=== PATIENT | male | born 1970 | race Caucasian/White ===

== ENCOUNTER 2019-02-06 11:13 | Outpatient (CLI) | payer OTHER, SELFPAY ==
--- NOTE | 2019-02-06 11:04 | DI.RAD_ITS ---
SYMPTOMS/DIAGNOSIS: LATERAL PAIN RIGHT ANKLE: Three views were obtained. The ankle mortise is fairly well maintained. There are prominent osseous bodies seen adjacent to medial and lateral malleoli which may represent accessory ossicles or old fractures. Anterior marginal osteophyte formation noted at the distal tibia, the possibility of tibiotalar impingement not excluded. Subtalar joints appear intact. No other significant abnormality seen.
== END 2019-02-06 11:33 ==
PROVIDERS: Visit Provider Physician Assistant Surgical
DX: M25.571 Pain in right ankle and joints of right foot (principal); M85.872 Other specified disorders of bone density and structure, left ankle and foot
CPT/HCPCS: 73610

== ENCOUNTER 2019-09-21 14:39 | Emergency (ER) | payer OTHER, SELFPAY ==
[2019-09-21 14:45] VITALS: BP 165/112; PULSE 85; RESP 16; TEMP 36.7; O2SAT 97
--- NOTE | 2019-09-21 15:15 | ED.GENADUL_ITS ---
Discharge Plan Disposition Patient Disposition: HOME Discharge Details Chief Complaint: Trauma Clinical Impression: Low back pain, Bilateral leg paresthesia, Contusion of back Primary Care Provider: Winnie Mckenzie ED Provider: Sukhdeep Magdaleno Home Meds and New Rx's Prescriptions: No Action ibuprofen 200 mg tablet 800 mg PO .Bedtime PRNRF: 0 epinephrine [EpiPen 2-Hiren] 0.3 mg/0.3 mL auto-injector 0.3 mg IM ONCE RF: 0 Discharge Instructions Instructions: Low Back Strain (ED) Additional Instructions: If numbness/tingling of your inner thighs returns, please schedule timely follow-up with orthopedics. Please take ibuprofen over the counter. Take 600mg by mouth every 6 hours as needed for pain. Please take acetaminophen (tylenol) - 650mg every 6 hours by mouth as needed for pain. Please contact your primary care physician to arrange follow-up. No heavy lifting, bending or twisting until symptoms completely resolved. Return to the ER for any worsening or new concerning symptoms. Stand Alone Forms: Work Release Referrals: Winnie Mckenzie NP [Primary Care Provider] - William Rollins MD [ [facility] STAFF PHYSICIAN] - Discharge Data Discharge Date/Time-TO BE ENTERED AT DEPARTURE: 09/21/19 16:35 Medical Decision Making 15:55 -- 57-year-old male presents 1 day after fall while on snow skate landing on his low back on ice, here with low back pain. Patient had intermittent tingling paresthesias to his inner thighs. He has had no bowel or bladder dysfunction. Rectal tone is normal. Patient is currently neurologically intact. Plan for CT of the lumbar spine to assess for fracture. --CT interpreted by radiology: No fracture. Degenerative spondylosis of the lumbar spine. Plan will be for outpatient follow-up. If paresthesias recur, patient will need timely follow-up with orthopedics. Usual customary discharge instructions were provided. HPI General Mode of arrival: ambulatory . Date/Time Provider Initiated Documentation: 09/21/19 14:56 . Limitations to Documentation: no limitations . Information obtained by: patient . HPI Narrative: 49-year-old male presents with chief complaint of low back pain. Patient notes he slipped on ice while on a snow skate and fell yesterday landing on his low back. He has had pain in his back since the fall. Pain is moderate to severe. Pain worse with certain positions including prolonged standing. Last night and early this morning he had intermittent tingling in his inner thighs bilaterally. No bowel or bladder dysfunction. No other injuries during the fall. Related Data Home Medications Medication Instructions Recorded Confirmed epinephrine 0.3 mg/0.3 mL 0.3 mg IM ONCE 07/03/19 09/21/19 injection, auto-injector ibuprofen 200 mg tablet 800 mg PO .Bedtime PRN tab 10/02/19 Allergies Allergy/AdvReac Type Severity Reaction Status Date / Time venom-honey bee Allergy Severe anaphlyaxix Verified 10/02/19 15:36 venom wasp Allergy Severe anaphylaxis Uncoded 10/02/19 15:36 General Stated Complaint: Trauma ADRIANA: 3 Review of Systems Gastrointestinal Gastrointestinal: Denies abdominal pain Musculoskeletal Musculoskeletal: Reports as per HPI Neurologic Neurologic: Reports as per HPI [facility] Medical History (Updated 10/02/19 @ 16:25 by Winnie Mckenzie NP) Elevated blood pressure reading without diagnosis of hypertension (Chronic) Gouty arthropathy (Inactive) Hypercholesterolemia (Acute) Low back pain (Acute) Neck pain (Acute) Thoracic back pain (Acute) Surgical History No significant past surgical history (Acute) Family History Mother , Age 54 Substance abuse Herioin Stroke Father , Suicide Age 56 Depression Social History Smoking/Tobacco Use Status: Never Second Hand Exposure: No Alcohol Intake: current Alcohol Intake frequency: 0-2 drinks per day Alcohol type: beer Drug use: Daily Substance use type: marijuana Household members: significant other Number of Children: 2 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 Pets and animals: Yes Pets and animals: dog(s) Current gender identity: male What is your relationship status?: living with partner Panel score (0-1 are the most socially isolated patients): 1 What type of physical activity do you participate in: bicycling Duration: 45-60 minutes/day Frequency: 3-4 times per week Seatbelt use: always Helmet use: Yes Helmet use: always Drive 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 or ride w/intox 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 Water heater temp set <120 deg: Yes Working smoke detector in home: Yes Fire extinguisher in home: Yes Carbon monox detector in home: Yes Firearms in home: Yes Firearms unloaded and locked: Yes Exam Const General: cooperative and no acute distress HENMT Head: normocephalic and atraumatic Mouth: moist mucous membranes Eyes Conjunctivae: normal conjunctivae Sclera: normal sclerae Neck Neck: full ROM, trachea midline and supple Resp Auscultation: clear to auscultation bilaterally, no rales, no rhonchi and no wheezes Cardio Jugular venous pressure: no JVD Rate: regular rate and not tachycardic Rhythm: regular rhythm GI Palpation: soft, not firm, no guarding, no masses, not rigid and nontender Rectal Exam: normal sphincter tone Back/Spine/Pelvis Cervical Spine: cervical ROM normal and No cervical spinal tenderness Thoracic/Lumbar Spine: paraspinal tenderness, No thoracic spinal tenderness and lumbar spinal tenderness (Lower lumbar and left paraspinal lumbar) Skin General skin exam: no rashes or lesions noted Neuro General: alert, awake, oriented x3 and tone normal Cognition: normal cognition Motor: muscle tone normal throughout and strength 5/5 throughout (Lower extremities) Sensory Exam: no sensory deficits noted (Lower extremities) DTR's: Rt Patellar: 2+ and Lt Patellar: 2+ Psych Appearance: grossly normal Mental Status: mental status grossly normal Course Vital Signs Vital signs: Vital Signs Temperature 36.7 C 09/21/19 14:45 Pulse 85 09/21/19 14:45 Respiratory Rate 16 09/21/19 14:45 Blood Pressure 165/112 H 09/21/19 14:45 Pulse Oximetry 97 09/21/19 14:45 Temperature 36.7 C 09/21/19 14:45 Temperature Source Skin 09/21/19 14:45 Pulse 85 09/21/19 14:45 Respiratory Rate 16 09/21/19 14:45 Respiratory Effort Non-Labored 09/21/19 14:45 Blood Pressure 165/112 H 09/21/19 14:45 Blood Pressure Position Sitting 09/21/19 14:45 Pulse Oximetry 97 09/21/19 14:45 Oxygen Delivery Method Room Air 09/21/19 14:45 Oxygen Flow Rate 0 09/21/19 14:45 Pain Level 9 09/21/19 14:45
--- NOTE | 2019-09-21 15:37 | DI.CT_ITS ---
EXAM: CT LUMBAR SPINE SI JOINTS WO CLINICAL HISTORY: fall, yesterday, intermittent inner thigh numbness TECHNIQUE: The exam was performed according to the usual protocol without contrast. COMPARISON: No exams were available for comparison FINDINGS: There are no acute fractures or subluxations seen in the lumbar spine. Multilevel degenerative minor es are present throughout the spine. Soft tissues are unremarkable. Sacroiliac joints are intact. Note is made of osteoarthritis of the hips bilaterally. IMPRESSION: No acute fracture or subluxation in the lumbar spine.
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
--- NOTE | 2019-09-25 07:12 | NUR.NOTE ---
Nursing Note: 09/24/2019 patient called stating he was still having pain and that he felt that he could not work until next week. Stated he would need a new work release note. The patient was told that he could try calling his PCP and getting an appt. or that he could come back to the ED for re-evaluation. Zuleika Rodriguez.
== END 2019-09-21 16:35 | disposition home or self-care (01) ==
PROVIDERS: Emergency Provider Student in an Organized Health Care Education/Training Program; PCP Nurse Practitioner Adult Health
DX: M54.5 Low back pain (principal); R20.2 Paresthesia of skin; S20.229A Contusion of unspecified back wall of thorax, initial encounter; W00.0XXA Fall on same level due to ice and snow, initial encounter
CPT/HCPCS: 99284; 72131

== ENCOUNTER 2019-12-03 09:59 | Outpatient (CLI) | payer OTHER, SELFPAY ==
[2019-12-03 11:39] LABS: ALT 30 U/L (16-63); AST 21 U/L (15-37); Albumin 4.2 g/dL (3.4-5.0); Alkaline Phosphatase 100 U/L (46-116); Anion Gap 3.6 mmol/L (3-11); BUN 23 mg/dL (7-18); Bilirubin, Total 0.7 mg/dL (0.2-1.0); CO2 34.4 mmol/L (21.0-32.0); CREATININE 0.93 mg/dL (0.70-1.30); Calcium 8.8 mg/dL (8.5-10.1); Calculated LDL 129 mg/dL (<100); Chloride 104 mmol/L (98-107); Cholesterol 225 mg/dL (<200); Glucose 97 mg/dL (74-106); HDL Cholesterol 41 mg/dL (40-60); Potassium 3.9 mmol/L (3.5-5.1); Sodium 142 mmol/L (136-145); Total Protein 7.5 g/dL (6.4-8.2); Triglyceride 276 mg/dL (<150)
== END 2019-12-03 10:19 ==
PROVIDERS: PCP Nurse Practitioner Adult Health; Visit Provider Nurse Practitioner Adult Health
DX: E78.00 Pure hypercholesterolemia, unspecified (principal); M10.9 Gout, unspecified; R03.0 Elevated blood-pressure reading, without diagnosis of hypertension
CPT/HCPCS: 36415; 80053; 80061

== ENCOUNTER 2020-04-09 15:54 | Outpatient (REF) | payer OTHER, SELFPAY ==
[2020-04-09 19:08] LABS: Anion Gap 9.9 mmol/L (3-11); BUN 23 mg/dL (7-18); CO2 27.1 mmol/L (21.0-32.0); CREATININE 1.07 mg/dL (0.70-1.30); Chloride 104 mmol/L (98-107); Glucose 106 mg/dL (74-106); Potassium 3.6 mmol/L (3.5-5.1); Sodium 141 mmol/L (136-145)
== END 2020-04-09 16:14 ==
LOC: LBN 15:54
PROVIDERS: PCP Nurse Practitioner Adult Health; Visit Provider Nurse Practitioner Adult Health
DX: I10 Essential (primary) hypertension (principal)
CPT/HCPCS: 80048

== ENCOUNTER 2020-05-23 16:52 | Emergency (ER) | payer OTHER, SELFPAY ==
[2020-05-23 16:57] VITALS: BP 181/115; PULSE 76; TEMP 37.3; O2SAT 99
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
== END 2020-05-23 18:34 | disposition home or self-care (01) ==
PROVIDERS: Emergency Provider Physician Assistant; PCP Nurse Practitioner Adult Health
DX: S42.022A Displaced fracture of shaft of left clavicle, initial encounter for closed fracture (principal); V18.0XXA Pedal cycle driver injured in noncollision transport accident in nontraffic accident, initial encounter; Y93.55 Activity, bike riding; I10 Essential (primary) hypertension
CPT/HCPCS: 23500; 73030; L3650

== ENCOUNTER 2020-06-01 10:46 | Outpatient (CLI) | payer OTHER, SELFPAY ==
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
== END 2020-06-01 11:06 ==
PROVIDERS: PCP Nurse Practitioner Adult Health; Referring Provider Nurse Practitioner Adult Health; Visit Provider Orthopaedic Surgery
DX: S42.032A Displaced fracture of lateral end of left clavicle, initial encounter for closed fracture (principal)
CPT/HCPCS: 73000

== ENCOUNTER 2021-06-21 17:13 | Inpatient (IN) | payer OTHER, SELFPAY ==
[2021-06-21] VITALS (65 sets, daily range): BP systolic 116–172; BP diastolic 68–117; PULSE 75–96; RESP 12–35; TEMP 35.4–36.8; O2SAT 89–100
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
[2021-06-21] MEDS: Normal Saline 1,000 ML 1000 ML IV ×2 (17:20→19:22)
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
[2021-06-21] MEDS: HYDROmorphone 2 MG/ML VIAL 1 MG IVP ×2 (17:34→18:36)
[2021-06-21 17:41] LABS: Source Nasal/Nares
[2021-06-21 17:47] LABS: Abs Immature Grans 0.27 10^3/uL (0.0-0.06); Absolute Lymphocyte Count 2.19 10^3/uL (1.2-3.4); Absolute Neutrophil Count 15.77 10^3/uL (1.2-6.7); Basophils % 0.6; Eosinophils % 0.5; HCT 42.5 % (40.0-50.0); HGB 13.9 g/dL (13.5-17.5); Immature Grans % 1.4; Lymphocytes % 11.1; MCH 29.8 pg (27.0-33.0); MCHC 32.7 % (32.0-36.0); MPV 10.1 fL (8.0-11.0); Monocytes % 6.3; Neutrophils % 80.1; Nucleated RBC 0 %; Platelet Count 229 10^3/uL (130-400); RBC 4.67 10^6/uL (4.36-5.78); RDW 12.8 % (11.8-14.1); RDW-SD 41.8 fL; WBC 19.69 10^3/uL (4.4-10.8)
[2021-06-21 17:48] LABS: Absolute Basophil Count 0.12 10^3/uL (0.0-0.2); Absolute Monocyte Count 1.24 10^3/uL (0.1-0.8)
[2021-06-21 18:01] LABS: INR 1.1 (0.9-1.1); PTT Activated 21.7 sec (21.0-27.5); Prothrombin Time 10.6 sec (9.3-11.0)
[2021-06-21 18:02] LABS: ALT 31 U/L (16-63); AST 28 U/L (15-37); Albumin 4.2 g/dL (3.4-5.0); Alkaline Phosphatase 84 U/L (46-116); Anion Gap 7.4 mmol/L (3-11); BUN 32 mg/dL (7-18); Bilirubin, Total 0.5 mg/dL (0.2-1.0); CO2 29.6 mmol/L (21.0-32.0); CREATININE 1.5 mg/dL (0.70-1.30); Calcium 8.6 mg/dL (8.5-10.1); Chloride 106 mmol/L (98-107); Estimated GFR 49.15 (mL/min/1.73m2); Glucose 193 mg/dL (74-106); Magnesium 2.2 mg/dL (1.8-2.4); Potassium 3.4 mmol/L (3.5-5.1); Sodium 143 mmol/L (136-145); Total Protein 7.9 g/dL (6.4-8.2)
[2021-06-21 18:05] LABS: Troponin I < 0.05 ng/mL (<0.06)
[2021-06-21] MEDS: Omnipaque 350 MG/ML 100 ML BTL IJ (18:25)
[2021-06-21] MEDS: Normal Saline - Diluent 50 ML VIAL IV (18:26)
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
[2021-06-21] MEDS: Tetanus & Diphtheria Tox,ADULT 0.5 ML VIAL IM (18:52)
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
[2021-06-21] MEDS: HYDROmorphone 2 MG/ML VIAL 0.5 MG IVP ×2 (19:28→19:56)
[2021-06-21] MEDS: LORazepam 2 MG/ML VIAL 1 MG IVP (19:46)
--- NOTE | 2021-06-21 20:12 | W.ANESNERVE ---
Nerve Block Single Injection Procedure Date and Time Date Performed: 06/21/21 Procedure Start: 19:52 Location Where Procedure Performed Procedure Location: Emergency Department Reason Performed: Acute Pain Management (Rib fractures 3-10 on left, pain on inspiration) Pain Diagnosis: Rib Pain Requesting Provider: Radha Roblero Timeout Performed Timeout Performed: Yes Monitoring Used ECG, Blood Pressure, SpO2 and See EMR for corresponding vital signs Sterility Sterility: Hand Hygiene, Surgical Cap, Surgical Mask, Sterile Gloves and Chlorhexidine Sedation Given During Procedure Sedation Given (Indicate Dose Given): Directed by Requesting Provider Patient Mental Status Patient Mental Status: Awake Nerve Block 1st Nerve Block: Laterality: Left Block Type: Erector Spinae (Upper) (T7) Needle / Catheter Used: 100mm SonoPlex II Local Anesthetic Bolus (Indicate Dose Given): Lidocaine used for local infiltration of skin, Injected in 3-5ml increments after negative blood aspiration, Bupivacaine 0.5% Dose:: 20 ml and Exparel Dose:: 10 ml Additives (Indicate Dose Given): None Ultrasound: Sterile probe cover and gel used Ultrasound Image Saved?: Yes Nerve Stimulator: Not Used Paresthesia: None Procedure Tolerated: No Complications and Patient tolerated well Procedure Outcome: Successful (Difficult to assess, patient subsequently sedated for chesttube insertion) Procedure Comment: Lots of edema, difficult visualization Performed By: Keli
--- NOTE | 2021-06-21 20:30 | DI.RAD_ITS ---
Exam(s) XR PORTABLE CHEST AP POST LINE EXAM: XR PORTABLE CHEST AP POST LINE CLINICAL HISTORY: chest tube placement. TECHNIQUE: 2D digital imaging was performed. COMPARISON: No exams were available for comparison FINDINGS: Heart size is upper normal. The mediastinum is not widened. There are multiple displaced left-sided rib fractures. Left chest tube is in place. There is infilt rate in the left lung base. No obvious pneumothorax. The opposite-right lung is clear. Subcutaneous emphysema seen over the left chest wall. IMPRESSION: Left chest tube. Multiple displaced left rib fractures. Left lower lobe infiltrate. No obvious pne umothorax. Left-sided subcutaneous emphysema. DATA REPOSITORY: RADIATION DOSE DELIVERED: All CT scans at this facility use at least one of these dose optimization techniques: automated exposure control; mA and/or kV adjustment per patient size (includes targeted e xams where dose is matched to clinical indication); or iterative reconstruction.
[2021-06-21 21:09] LABS: COVID-19 PCR Negative (Negative)
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
[2021-06-21] MEDS: fentaNYL 100 MCG/2 ML VIAL (21:48)
[2021-06-21] MEDS: Ketorolac 15 MG/ML VIAL IVP (22:43)
[2021-06-22] VITALS (85 sets, daily range): BP systolic 106–169; BP diastolic 57–99; PULSE 66–82; RESP 12–28; TEMP 35.6–36.6; O2SAT 92–99
[2021-06-22] MEDS: Acetaminophen 500 MG TAB 1000 MG PO ×5 (00:45→22:18)
[2021-06-22] MEDS: Bacitracin 1 PACKET TP ×3 (00:45→22:18)
[2021-06-22] MEDS: oxyCODONE 5 MG TAB PO ×2 (00:48→10:58)
[2021-06-22] MEDS: Ketorolac 15 MG/ML VIAL IVP ×4 (04:51→22:15)
[2021-06-22] MEDS: Normal Saline Flush 10 ML SYR IVP ×3 (04:52→22:18)
[2021-06-22 06:00] LABS: Abs Immature Grans 0.06 10^3/uL (0.0-0.06); Absolute Basophil Count 0.03 10^3/uL (0.0-0.2); Absolute Lymphocyte Count 1.22 10^3/uL (1.2-3.4); Absolute Monocyte Count 1.21 10^3/uL (0.1-0.8); Basophils % 0.3; HCT 33.4 % (40.0-50.0); Immature Grans % 0.6; MCH 29.6 pg (27.0-33.0); MCHC 32.9 % (32.0-36.0); MPV 10.4 fL (8.0-11.0); Monocytes % 11.9; Neutrophils % 75.2; Nucleated RBC 0 %; Platelet Count 173 10^3/uL (130-400); RBC 3.71 10^6/uL (4.36-5.78); RDW-SD 42.6 fL
[2021-06-22 06:04] LABS: Absolute Neutrophil Count 7.67 10^3/uL (1.2-6.7)
[2021-06-22 06:18] LABS: ALT 25 U/L (16-63); AST 35 U/L (15-37); Albumin 3.4 g/dL (3.4-5.0); Alkaline Phosphatase 62 U/L (46-116); BUN 28 mg/dL (7-18); Bilirubin, Total 0.9 mg/dL (0.2-1.0); CREATININE 1.1 mg/dL (0.70-1.30); Calcium 8.2 mg/dL (8.5-10.1); Chloride 107 mmol/L (98-107); Glucose 127 mg/dL (74-106); Potassium 4.1 mmol/L (3.5-5.1); Sodium 140 mmol/L (136-145); Total Protein 6.5 g/dL (6.4-8.2)
--- NOTE | 2021-06-22 08:07 | W.PM.PROGNOT ---
Date of Service Date of service: 06/22/21 Time of Service: 08:08 Assessment and Plan Assessment and plan (1) Multiple closed fractures of ribs of left side: Status: Acute Assessment and plan: Chest tube in place on wall suction. 110 ccs bloody output overnight. No air leak noted while conversing with the patient. Unable to cough secondary to pain. Awaiting portable chest x-ray this morning. Continue with aggressive pulmonary toilet to prevent pneumonia multi modality Pain management plan Patient received Rib block last night Regular diet. CIWA ordered P// Continue with aggressive pulmonary toilet and pain control. (2) Pneumothorax on left: Status: Acute (3) Hemothorax, left: Status: Acute (4) Hypertension: Status: Chronic (5) Hypercholesterolemia: Status: Chronic Subjective Subjective Interval history since last seen: Arrive with patient lying bed. Patient reports 6-7/10PL at rest, which increases to 9/10PL with moving and sitting up right. He denies having any fevers, chills or night sweats. He has been using the incentive spirometer. He states that his pain does feel improved compared to yesterday, in that he is not screaming out in pain. Exam Const General: cooperative, healthy appearing and comfortable Orientation: alert and oriented x3 Resp Effort & Inspection: normal respiratory effort, no audible wheezes and no cough Objective Last Vital Signs Temp 35.9 C L 06/22/21 03:00 Pulse 68 06/22/21 06:01 Resp 12 06/22/21 06:01 BP 136/82 06/22/21 06:01 Pulse Ox 96 06/22/21 06:01 Laboratory Results - last 24 hr 06/21/21 06/21/21 06/21/21 17:33 17:33 17:33 WBC 19.69 H RBC 4.67 Hgb 13.9 Hct 42.5 MCV 91.0 MCH 29.8 MCHC 32.7 RDW 12.8 Plt Count 229 MPV 10.1 Immature Gran % 1.4 Neutrophils % 80.1 Lymphocytes % 11.1 Monocytes % 6.3 Eosinophils % 0.5 Basophils % 0.6 Nucleated RBC % 0 Absolute Neutrophils 15.77 H Absolute Lymphocytes 2.19 Absolute Monocytes 1.24 H Absolute Eosinophils 0.10 Absolute Basophils 0.12 PT 10.6 INR 1.1 APTT 21.7 Sodium 143 Potassium 3.4 L Chloride 106 Carbon Dioxide 29.6 Anion Gap 7.4 BUN 32 H Creatinine 1.5 H Estimated GFR/1.73 m2 49.15 Glucose 193 H Calcium 8.6 Magnesium 2.2 Total Bilirubin 0.5 AST 28 ALT 31 Alkaline Phosphatase 84 Troponin I < 0.05 Total Protein 7.9 Albumin 4.2 COVID-19 Source SARS-CoV-2 (PCR) Patient ABO/Rh Antibody Screen 06/21/21 06/21/21 06/22/21 17:33 17:37 05:30 WBC RBC Hgb Hct MCV MCH MCHC RDW Plt Count MPV Immature Gran % Neutrophils % Lymphocytes % Monocytes % Eosinophils % Basophils % Nucleated RBC % Absolute Neutrophils Absolute Lymphocytes Absolute Monocytes Absolute Eosinophils Absolute Basophils PT INR APTT Sodium 140 Potassium 4.1 D Chloride 107 Carbon Dioxide 28.0 Anion Gap 5.0 BUN 28 H Creatinine 1.1 Estimated GFR/1.73 m2 >= 60.00 Glucose 127 H Calcium 8.2 L Magnesium Total Bilirubin 0.9 AST 35 ALT 25 Alkaline Phosphatase 62 Troponin I Total Protein 6.5 Albumin 3.4 COVID-19 Source Nasal/Nares SARS-CoV-2 (PCR) Negative Patient ABO/Rh A Positive Antibody Screen NEGATIVE 06/22/21 05:30 WBC 10.20 D RBC 3.71 L Hgb 11.0 L D Hct 33.4 L D MCV 90.0 MCH 29.6 MCHC 32.9 RDW 13.0 Plt Count 173 MPV 10.4 Immature Gran % 0.6 Neutrophils % 75.2 Lymphocytes % 12.0 Monocytes % 11.9 Eosinophils % 0.0 Basophils % 0.3 Nucleated RBC % 0 Absolute Neutrophils 7.67 H Absolute Lymphocytes 1.22 Absolute Monocytes 1.21 H Absolute Eosinophils 0.00 Absolute Basophils 0.03 PT INR APTT Sodium Potassium Chloride Carbon Dioxide Anion Gap BUN Creatinine Estimated GFR/1.73 m2 Glucose Calcium Magnesium Total Bilirubin AST ALT Alkaline Phosphatase Troponin I Total Protein Albumin COVID-19 Source SARS-CoV-2 (PCR) Patient ABO/Rh Antibody Screen
[2021-06-22] MEDS: Lidocaine 5% Patch 1 PATCH TP (08:21)
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
--- NOTE | 2021-06-22 12:30 | RT.EKG_ITS ---
APPROVED REPORT Exam: Resting ECG Reason for Exam: trauma, chest pain Patient Location: I HR:70 bpm ECG Measurements Heart Rate 70 AXIS MN 166 P 52 QRSd 88 QRS 36 QT 400 T 115 QTc 432 Conclusion Sinus rhythm...normal P axis, V-rate 60- 99 Left ventricular hypertrophy...multiple voltage criteria Nonspecific T abnormalities, lateral leads...T <-0.10mV, I aVL V5 V6 ST elev, probable normal early repol pattern...ST elevation, age<55
--- NOTE | 2021-06-22 13:21 | PT.INTREAT ---
Date of service: 06/22/21 Time of Service: 13:21 PT Notes Visit Reasons: Blunt Chest Trama,Rib FX/Pulm Contusion/Hemopneumo Physical Therapy Inpatient Treatment Note Date: 06/22/2021 Precautions: Fall. Standard. Activity as tolerated. Subjective: States that at rest her his pain level is pretty much manageable. Movement transitions cause pain of up to 8?9/10. Objective: General Observation: Surgical chest tube in place. Telemetry in place. IV access in R UE. Scapular depression on the L. Scapular swelling seen on the L. Regional ecchymosis on the left side of the chest and back. Mental Status: Alert and oriented as to person, place, time, and purpose. Able to pay attention, focus, and respond appropriately. Pain: 5/10 in L ribs at rest, 8-9/10 with movement, Vital Signs: BP in the high 140s systolically and low 80s at end of session Bed Mobility/Transfers: Sit to supine minimal assist provided to left LE only to minimize pain Sit to stand standby assist. Patient was able to tolerate static standing about 8 minutes while his shortness for being changed with assistance of . Stand to sit standby assist with report of pain of up to 8?9/10 pain on the left rib area Bedside chair to bed to standby assist Gait: Instructed patient with in-room short distance ambulation of 5 steps requiring standby assist. Steps hesitant and careful. Reported up to 8-9/10 in in the injured areas. Balance: Static Sitting: Good Dynamic Sitting:Fair Static Standing: Fair Dynamic Standing: Fair Assessment: Continues to be leary of movement due to pain level which shoots up to 8-9/10 during movement transitions. Needs to be premedicated for pain. DISCHARGE RECOMMENDATIONS: OP PT to facilitate return to pre-morbid independent mobility level. TREATMENT CODE/TIME: 16222 x 27' beginning at 13:21 PM.
[2021-06-22 15:01] LABS: HCT 32.8 % (40.0-50.0); HGB 10.8 g/dL (13.5-17.5); MCH 30.2 pg (27.0-33.0); MCHC 32.9 % (32.0-36.0); MCV 91.6 fL (80-95); MPV 10.3 fL (8.0-11.0); Platelet Count 153 10^3/uL (130-400); RBC 3.58 10^6/uL (4.36-5.78); RDW 12.8 % (11.8-14.1); RDW-SD 42.8 fL; WBC 9.54 10^3/uL (4.4-10.8)
--- NOTE | 2021-06-22 15:32 | ANES.NERVE_ITS ---
Nerve Block Single Injection Procedure Date and Time Date Performed: 06/22/21 Procedure Start: 15:05 Location Where Procedure Performed Procedure Location: Intensive Care Unit Reason Performed: Acute Pain Management Pain Diagnosis: Rib Pain Requesting Provider: Falguni Saldivar Timeout Performed Timeout Performed: Yes Monitoring Used ECG, Blood Pressure, SpO2 and See EMR for corresponding vital signs Sterility Sterility: Hand Hygiene, Surgical Cap, Surgical Mask, Sterile Gloves and Chlorhexidine Sedation Given During Procedure Sedation Given (Indicate Dose Given): No Sedation given Patient Mental Status Patient Mental Status: Awake Nerve Block 1st Nerve Block: Laterality: Left Block Type: Erector Spinae (Upper) Needle / Catheter Used: 100mm SonoPlex II Local Anesthetic Bolus (Indicate Dose Given): Lidocaine used for local infiltration of skin, Injected in 3-5ml increments after negative blood aspiration, Bupivacaine 0.375% Dose:: 30 ml and Exparel Dose:: 10 ml Additives (Indicate Dose Given): None Ultrasound: Sterile probe cover and gel used Ultrasound Image Saved?: Yes Nerve Stimulator: Not Used Paresthesia: None Procedure Tolerated: No Complications Procedure Outcome: Successful Procedure Comment: Was asked to see Wili in regards to pain due to rib fractures and if a repeat ESPB or a ketamine infusion would be of benefit too him. He is currently sitting in bed in complaining mostly of pain that appears around the chest tube insertion level. He denies major pain from the upper ribs. Discussed that his swelling might be better and we may have better success block ing him today than we did yesterday. Discussed risk, benefits, and alternatives to ESPB. We had planned to do a two site injection to cover all of his fractures, but after a recon scan the anatomy was very distorted about T5-6 due to air so the plan was changed to do a single injection at T 7. Pt tolerated the procedure fair (he is needle-phobic and got sweaty and anxious during the procedure). Performed By: Leo Fried
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
[2021-06-22] MEDS: Patch Removal 1 EACH TP (22:00)
[2021-06-22] MEDS: Enoxaparin 40 MG/0.4 ML SYR SC (22:17)
[2021-06-22] MEDS: Gabapentin 300 MG CAP PO (22:19)
[2021-06-23] VITALS (60 sets, daily range): BP systolic 111–153; BP diastolic 67–89; PULSE 63–85; RESP 14–28; TEMP 36.2–36.7; O2SAT 87–98
[2021-06-23] MEDS: Ketorolac 15 MG/ML VIAL IVP ×4 (03:31→21:43)
[2021-06-23] MEDS: Acetaminophen 500 MG TAB 1000 MG PO ×4 (03:32→21:34)
[2021-06-23] MEDS: Normal Saline Flush 10 ML SYR IVP ×3 (06:19→21:34)
[2021-06-23] MEDS: Ondansetron 4 MG/2 ML VIAL IVP (06:19)
--- NOTE | 2021-06-23 06:37 | NUR.NOTE ---
0630-patient has been oob in a a chair for about 45 minutes. Right AC IV is leaking blood and pt states he cannot look at it as it makes him nauseated. pt is becoming more and more anxious. stating some cloudy vision, anxiety, headache, diaphoresis and rocking back and forth. This nurse spoke with anesthesia Fried and asked if pt should get lorazepam for withdrawal and he asked that the ketamine be stopped for 1 hour and not give lorazepam at this time and then evaluate if there is an improvement. IV ketamine stopped at 0630. Also, pt had been given 4mg iv zofran for his nausea with relief pending
[2021-06-23 06:52] LABS: Abs Immature Grans 0.03 10^3/uL (0.0-0.06); Absolute Eosinophil Count 0.08 10^3/uL (0.0-0.7); Absolute Lymphocyte Count 2.31 10^3/uL (1.2-3.4); Basophils % 0.5; Eosinophils % 0.7; HCT 29.2 % (40.0-50.0); HGB 9.5 g/dL (13.5-17.5); Immature Grans % 0.3; Lymphocytes % 20.9; MCH 30.3 pg (27.0-33.0); MCHC 32.5 % (32.0-36.0); MPV 10.2 fL (8.0-11.0); Monocytes % 10.1; Neutrophils % 67.5; Nucleated RBC 0 %; Platelet Count 193 10^3/uL (130-400); RBC 3.14 10^6/uL (4.36-5.78); RDW 12.9 % (11.8-14.1); RDW-SD 43.8 fL; WBC 11.04 10^3/uL (4.4-10.8)
[2021-06-23 06:53] LABS: Absolute Basophil Count 0.06 10^3/uL (0.0-0.2); Absolute Monocyte Count 1.12 10^3/uL (0.1-0.8); Absolute Neutrophil Count 7.45 10^3/uL (1.2-6.7)
[2021-06-23 07:05] LABS: ALT 30 U/L (16-63); AST 36 U/L (15-37); Albumin 3.2 g/dL (3.4-5.0); Alkaline Phosphatase 55 U/L (46-116); Anion Gap 4.2 mmol/L (3-11); BUN 27 mg/dL (7-18); Bilirubin, Total 0.6 mg/dL (0.2-1.0); CO2 29.8 mmol/L (21.0-32.0); CREATININE 1.5 mg/dL (0.70-1.30); Calcium 8.5 mg/dL (8.5-10.1); Chloride 105 mmol/L (98-107); Estimated GFR 49.15 (mL/min/1.73m2); Glucose 135 mg/dL (74-106); Potassium 3.8 mmol/L (3.5-5.1); Sodium 139 mmol/L (136-145); Total Protein 6.6 g/dL (6.4-8.2)
[2021-06-23] MEDS: LORazepam 1 MG TAB PO/SL (08:20)
[2021-06-23] MEDS: Lidocaine 5% Patch 1 PATCH TP (08:20)
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
[2021-06-23] MEDS: Bacitracin 1 PACKET TP ×2 (10:48→21:34)
--- NOTE | 2021-06-23 13:40 | PHA.REVIEW ---
Pharmacy Admission Review - Admission Clinical Review (Last Reviewed 06/21/21 @ 17:24 by Ho Saxena MD) JUAN (acute kidney injury) (Acute) Hypokalemia (Acute) Pleural effusion (Acute) Left pulmonary contusion (Acute) Multiple closed fractures of ribs of left side (Acute) Pneumothorax on left (Acute) Hemothorax, left (Acute) venom-honey bee Allergy (Severe, Verified 06/21/21 17:25) anaphlyaxix venom wasp Allergy (Severe, Uncoded 06/21/21 17:25) anaphylaxis Resuscitation Status Full Code Height 6 ft 1 in Weight 110.7 kg - Renal Dosing Renal Dosing: BUN 27 mg/dL (7-18) H 06/23/21 06:40 Creatinine 1.5 mg/dL (0.70-1.30) H 06/23/21 06:40 Medications needing adjustments: Reviewed (Crcl ~75.1 mL/min using adjusted body weight. Current meds okay.) - Anticoagulation Anticoagulation: Hgb 9.5 g/dL (13.5-17.5) L 06/23/21 06:40 Hct 29.2 % (40.0-50.0) L 06/23/21 06:40 Plt Count 193 10^3/uL (130-400) 06/23/21 06:40 INR 1.1 (0.9-1.1) 06/21/21 17:33 Creatinine 1.5 mg/dL (0.70-1.30) H 06/23/21 06:40 DVT Prophylaxis: Reviewed Medications: Enoxaparin Therapeutic Anticoagulation: N/A - Opiate Usage Evaluate Pain Scale/Pains Meds: Reviewed Scheduled Bowel Reg ordered if on Opiates?: No (has a prn med ordered) - Relevant Labs Sodium 139 mmol/L (136-145) 06/23/21 06:40 Potassium 3.8 mmol/L (3.5-5.1) 06/23/21 06:40 Chloride 105 mmol/L (98-107) 06/23/21 06:40 Magnesium 2.2 mg/dL (1.8-2.4) 06/21/21 17:33 Electrolytes, C-Reactive P, ESR: Reviewed - DM Control DM Control: Glucose 135 mg/dL (74-106) H 06/23/21 06:40 Insulin Dosing: N/A - Heart Failure/NJ Heart Failure/NJ: Troponin I < 0.05 ng/mL (<0.06) 06/21/21 17:33 EF%, ROMEO's, B-Blockers, Diuretics: Reviewed - BP Control BP Control: Blood Pressure [Right Arm] 118/68 Blood Pressure [Right Arm] 134/78 Blood Pressure 118/68 Blood Pressure 130/75 Blood Pressure 127/72 Blood Pressure 111/67 Blood Pressure 135/80 Blood Pressure 134/78 If elevated: Reviewed (BP was elevated on admission, within normal limits so far today.) - Qtc Review If Elevated: N/A (QTc 432 on most recent EKG this admission) - IV to PO Switch IV Medications: Reviewed - Home Meds Home Med List reviewed: Reviewed Relevent Home Meds Not ordered & why?: epinephrine (PRN), lisinopril - Current meds Current Medication Order Review: Intervened (Discontinued duplicate med orders and DI meds that had already been given.) - Comments Comments/Follow Ups: Watch VS, labs and for med changes (possible additional need of BM meds, IV to PO).
[2021-06-23 13:45] LABS: Hematocrit, Body Fluid 10.5 %
[2021-06-23] MEDS: IRON SUCROSE COMPLEX 200 MG in Normal Saline 100 ML 400 MG IVPB (13:49)
--- NOTE | 2021-06-23 15:09 | PT.INTREAT ---
Date of service: 06/23/21 Time of Service: 10:46 PT Notes Visit Reasons: Blunt Chest Trama,Rib FX/Pulm Contusion/Hemopneumo Inpatient Physical Therapy Treatment Note [facility] Date: 06/23/2021 PRECAUTIONS: WBAT L UE SUBJECTIVE: Chauncey is pleasant and agreeable to participating in PT. He states that it feels better to be up in a chair than in bed, he also reports that he is having trouble getting into/out of bed due to pain from broken ribs. OBJECTIVE: PAIN: Patient c/o 8/10 pain in L rib area with movement. BED MOBILITY/TRANSFERS Sit-stand: I Stand-sit: I Bed-Chair: S Chair-bed: S GAIT Assistive Device: No AD Weight bearing: WBAT L UE Assist: SBA Distance: 50' x2 Deviation: Pain STAIRS: Up/down 3x4 and 2x6 using B rails and a step-over pattern independently. ASSESSMENT: Patient tolerated session with complaint of 8/10 pain in L rib area with all movement. She demonstrates independence with transfers and stair negotiation at this time. Patient would benefit from bed mobility training as well as continued gait training. PLAN: Continue with gait training and add bed mobility training for increased independence. TREATMENT CODE/TIME: 23 minutes; 92996 x2 (10:46)
--- NOTE | 2021-06-23 15:28 | CMPROGNOTE_ITS ---
- If Service Date Differs Date of service: 06/23/21 Time of Service: 15:28 Care Management Progress Note S/O:Wili was sitting up in a chair visiting with Frida when CM met with him.He was laughing at a tv show that they were watching and stated that his pain was about a 4-5/10. Wili shared that he had worked with PT this morning and did well on the stairs. He will have therapy again this afternoon. Wili remains afebrile and his vital signs are stable. Wili scored a 14 on the CIWA scale thi s morning but he has only scored 1-2 since then. A: Wili is a 51 year old man admitted on 06/22/21 with chest trauma, rib fractures and a hemothorax P:Wili will likely be discharged home with no new services. He will follow up with his PCP and plan of care and transport with Frida. CM will continue to support Wili and assess for discharge needs.
[2021-06-23] MEDS: oxyCODONE 5 MG TAB PO (21:33)
[2021-06-23] MEDS: Enoxaparin 40 MG/0.4 ML SYR SC (21:33)
[2021-06-23] MEDS: Gabapentin 300 MG CAP PO (21:34)
[2021-06-23] MEDS: Patch Removal 1 EACH TP (21:42)
--- NOTE | 2021-06-23 22:47 | W.PM.PROGNOT ---
Date of Service Date of service: 06/23/21 Time of Service: 22:47 Assessment and Plan Assessment and plan (1) Anemia: Status: Chronic Assessment and plan: -Transfuse 1 unit of blood today Continue iron supplementation Continue multimodal pain control in conjunction with anesthesia Patient has not had a bowel movement and this will be addressed I did discuss his case with thoracic surgery at [facility]. With . They have no beds at [facility] today. They anticipate having beds on Sunday. And we will try on Sunday to get him transferred down to [facility] for rib fixation. Continue aggressive pulmonary toilet. Continue pain management with anesthesia. Continue physical therapy. Patient is doing remarkably well Continue nutritional support 90 minutes spent on patient's care today Qualifiers: Anemia type: unspecified type Qualified Code(s): D64.9 - Anemia, unspecified (2) Left pulmonary contusion: Status: Acute Qualifiers: Encounter type: initial encounter Qualified Code(s): S27.321A - Contusion of lung, unilateral, initial encounter (3) Multiple closed fractures of ribs of left side: Status: Acute Qualifiers: Encounter type: initial encounter Qualified Code(s): S22.42XA - Multiple fractures of ribs, left side, initial encounter for closed fracture (4) Pneumothorax on left: Status: Acute (5) Hemothorax, left: Status: Acute (6) Traumatic hematoma of right lower leg: Status: Acute (7) Hypertension: Status: Chronic Qualifiers: Hypertension type: unspecified Qualified Code(s): I10 - Essential (primary) hypertension Subjective Subjective Interval history since last seen: Pt is doing well. no headaches. No CP or SOB. no productive cough. no dysuria. no leg pain or swelling. chest pain is controlled. NO cough. No air leak. Pt did get up and walk. 150cc out in 24 hrs. pt not had BM. Exam [facility] Head: normal to inspection Ears: hearing grossly normal bilaterally General nose exam: external nose normal Face and sinus: normal facial exam and sinuses nontender Mouth: oral mucosae normal Teeth and gingiva: dentition normal and gingiva normal Chest Chest: abnormal inspection of the chest, crepitus, localized rib tenderness with anteroposterior compression and tenderness Other: lg hematoma/echymosis/abrasions Resp Effort & Inspection: able to speak in complete sentences and cough (poor) Other: decrease BS on left. no air leak. 150cc lt. serous drainage. Cardio Rate: regular rate Rhythm: regular rhythm GI Inspection: normal to inspection Palpation: soft and nontender Objective Last Vital Signs Temp 36.5 C 06/23/21 15:08 Pulse 75 06/23/21 20:27 Resp 20 06/23/21 20:30 BP 151/89 H 06/23/21 20:27 Pulse Ox 87 L 06/23/21 20:50 Laboratory Results - last 24 hr 06/22/21 06/23/21 06/23/21 08:57 06:40 06:40 WBC 11.04 H RBC 3.14 L Hgb 9.5 L Hct 29.2 L MCV 93.0 MCH 30.3 MCHC 32.5 RDW 12.9 Plt Count 193 MPV 10.2 Immature Gran % 0.3 Neutrophils % 67.5 Lymphocytes % 20.9 Monocytes % 10.1 Eosinophils % 0.7 Basophils % 0.5 Nucleated RBC % 0 Absolute Neutrophils 7.45 H Absolute Lymphocytes 2.31 Absolute Monocytes 1.12 H Absolute Eosinophils 0.08 Absolute Basophils 0.06 Sodium 139 Potassium 3.8 Chloride 105 Carbon Dioxide 29.8 Anion Gap 4.2 BUN 27 H Creatinine 1.5 H Estimated GFR/1.73 m2 49.15 Glucose 135 H Calcium 8.5 Total Bilirubin 0.6 AST 36 ALT 30 Alkaline Phosphatase 55 Total Protein 6.6 Albumin 3.2 L Fluid Hematocrit 10.5
[2021-06-24] VITALS (45 sets, daily range): BP systolic 110–141; BP diastolic 59–78; PULSE 68–85; RESP 14–28; TEMP 36.3–37.5; O2SAT 19–98
[2021-06-24] MEDS: LORazepam 1 MG TAB PO/SL (03:12)
[2021-06-24] MEDS: Acetaminophen 500 MG TAB 1000 MG PO ×4 (03:12→23:50)
[2021-06-24] MEDS: Ketorolac 15 MG/ML VIAL IVP (03:12)
[2021-06-24 07:09] LABS: Abs Immature Grans 0.07 10^3/uL (0.0-0.06); Absolute Basophil Count 0.06 10^3/uL (0.0-0.2); Absolute Eosinophil Count 0.06 10^3/uL (0.0-0.7); Absolute Lymphocyte Count 1.29 10^3/uL (1.2-3.4); Absolute Monocyte Count 1.18 10^3/uL (0.1-0.8); Absolute Neutrophil Count 9.06 10^3/uL (1.2-6.7); Basophils % 0.5; Eosinophils % 0.5; HCT 25.4 % (40.0-50.0); HGB 8.4 g/dL (13.5-17.5); Immature Grans % 0.6; MCH 29.9 pg (27.0-33.0); MCHC 33.1 % (32.0-36.0); MCV 90.4 fL (80-95); MPV 10.5 fL (8.0-11.0); Monocytes % 10.1; Neutrophils % 77.3; Nucleated RBC 0 %; Platelet Count 179 10^3/uL (130-400); RBC 2.81 10^6/uL (4.36-5.78); RDW 12.9 % (11.8-14.1); RDW-SD 42.3 fL; WBC 11.72 10^3/uL (4.4-10.8)
[2021-06-24 07:24] LABS: ALT 26 U/L (16-63); AST 27 U/L (15-37); Alkaline Phosphatase 52 U/L (46-116); Anion Gap 6.4 mmol/L (3-11); BUN 30 mg/dL (7-18); Bilirubin, Total 0.6 mg/dL (0.2-1.0); CO2 28.6 mmol/L (21.0-32.0); CREATININE 1.2 mg/dL (0.70-1.30); Calcium 8.3 mg/dL (8.5-10.1); Chloride 104 mmol/L (98-107); Glucose 129 mg/dL (74-106); Sodium 139 mmol/L (136-145); Total Protein 6.3 g/dL (6.4-8.2)
--- NOTE | 2021-06-24 08:47 | PDOC.CMPRO ---
- If Service Date Differs Date of service: 06/24/21 Time of Service: 08:48 Care Management Progress Note S/O:Wili was sleeping when CM came to see him and was asked by nursing not to wake him up. Wili continues to have pain which is fairly well controlled with several modalities. This morning Wili required a blood transfusion as his H&H has been slowly declining. His chest tube is draining serosanguinous fluid with small clots, per provider. It si possible that Wili will be transferred to [facility] for surgery tomorrow. He may benefit from plating due to the number of ribs that have been fractured. CM continues to follow. A: Wili is a 51 year old man admitted on 06/22/21 with chest trauma, rib fractures and a hemothorax P:Wili' discharge plan is unclear at this time. He may be transferred to [facility] for surgery tomorrow. If surgery is not required, he may need new home health services when discharged. Transportation will be determined by disposition. CM will continue to support Wiil and assess for discharge needs.
[2021-06-24] MEDS: Lidocaine 5% Patch 1 PATCH TP (08:49)
[2021-06-24] MEDS: diphenhydrAMINE 25 MG CAP PO (08:51)
--- NOTE | 2021-06-24 08:56 | DI.RAD_ITS ---
Exam(s) XR PORTABLE CHEST AP EXAM: XR PORTABLE CHEST AP CLINICAL HISTORY: mult rib fx TECHNIQUE: 2D digital imaging was performed of the chest. Images were obtained. PA and lateral v iews were obtained. COMPARISON: CR XR PORTABLE CHEST AP from 06/23/2021 FINDINGS: MEDIASTINUM: Normal. HEART: Normal. PULMONARY VASCULATURE: Normal. LUNGS: There is continued improved aeration of the left lung with minimal basilar atelectasis present . The right lung is clear. PLEURAL SPACE: Evaluation of a left pneumothorax is limited due to the multiple rib fractures and sub cutaneous emphysema. There does appear to be a persistent left pneumothorax. There is a vertical kathrin cency suggested along the left lateral chest wall. This may represent the pneumothorax lung interfac e. No right pneumothorax or pleural effusion. BONE:There again seen multiple left displaced rib fractures and a left clavicular fracture. OTHER FINDINGS:There is subcutaneous emphysema along the left lateral chest wall. The left chest tub e is stable in position. IMPRESSION: Question of a persistent left pneumothorax. Pneumothorax assessment is difficult due to the rib frac tures and subcutaneous emphysema. DATA REPOSITORY: RADIATION DOSE DELIVERED:
[2021-06-24] MEDS: Normal Saline Flush 10 ML SYR IVP (09:40)
--- NOTE | 2021-06-24 09:40 | W.PM.PROGNOT ---
Date of Service Date of service: 06/24/21 Time of Service: 09:41 Assessment and Plan Assessment and plan (1) Multiple closed fractures of ribs of left side: Status: Acute Assessment and plan: -Multiple depressed rib fractures, would probably benefit from rib plating -Multimodal pain control -Encourage incentive spirometer use Qualifiers: Encounter type: initial encounter Qualified Code(s): S22.42XA - Multiple fractures of ribs, left side, initial encounter for closed fracture (2) Pneumothorax on left: Status: Acute Assessment and plan: PPD#3 s/p left chest tube placement -AM ches t x-ray reviewed, no air leak -Continue wall suction due to small persistent apical pneumothorax -Continue to monitor output -Supplemental oxygen and incentive spirometer use (3) Hemothorax, left: Status: Acute (4) Left pulmonary contusion: Status: Acute Qualifiers: Encounter type: initial encounter Qualified Code(s): S27.321A - Contusion of lung, unilateral, initial encounter (5) Anemia: Status: Chronic Assessment and plan: -Likely secondary to traumatic hemothorax, Hb 8.4 this AM from 9.5 and 10.8 previously -Transfuse PRN, continue to monitor chest tube output, currently not gross blood but serosanguineous with small clots Qualifiers: Anemia type: unspecified type Qualified Code(s): D64.9 - Anemia, unspecified Subjective Subjective Interval history since last seen: Patient reports pain is tolerable, improving on incentive spirometer, denies any fevers, chills, nausea, vomiting, dizziness or worsening shortness of breath or chest discomfort Exam Const General: cooperative, healthy appearing, comfortable and no acute distress Chest Chest: crepitus (left chest), tenderness and other (left chest tube in place, no air leak) Resp Effort & Inspection: normal respiratory effort, able to speak in complete sentences, no audible wheezes, no respiratory distress and no use of accessory muscles GI Inspection: non-distended Palpation: soft, no guarding and nontender Skin Trauma: abrasion (left lateral elbow ) Neuro General: patient alert, patient awake and patient oriented x3 Objective Last Vital Signs Temp 98.8 F 06/24/21 08:51 Pulse 73 06/24/21 04:01 Resp 15 06/24/21 08:51 BP 134/77 06/24/21 04:01 Pulse Ox 96 06/24/21 08:51 Laboratory Results - last 24 hr 06/21/21 06/22/21 06/24/21 17:33 08:57 06:10 WBC RBC Hgb Hct MCV MCH MCHC RDW Plt Count MPV Immature Gran % Neutrophils % Lymphocytes % Monocytes % Eosinophils % Basophils % Nucleated RBC % Absolute Neutrophils Absolute Lymphocytes Absolute Monocytes Absolute Eosinophils Absolute Basophils Sodium 139 Potassium 4.0 Chloride 104 Carbon Dioxide 28.6 Anion Gap 6.4 BUN 30 H Creatinine 1.2 Estimated GFR/1.73 m2 >= 60.00 Glucose 129 H Calcium 8.3 L Total Bilirubin 0.6 AST 27 ALT 26 Alkaline Phosphatase 52 Total Protein 6.3 L Albumin 3.0 L Fluid Hematocrit 10.5 Patient ABO/Rh A Positive Antibody Screen NEGATIVE Crossmatch See Detail 06/24/21 06:10 WBC 11.72 H RBC 2.81 L Hgb 8.4 L Hct 25.4 L MCV 90.4 MCH 29.9 MCHC 33.1 RDW 12.9 Plt Count 179 MPV 10.5 Immature Gran % 0.6 Neutrophils % 77.3 Lymphocytes % 11.0 Monocytes % 10.1 Eosinophils % 0.5 Basophils % 0.5 Nucleated RBC % 0 Absolute Neutrophils 9.06 H Absolute Lymphocytes 1.29 Absolute Monocytes 1.18 H Absolute Eosinophils 0.06 Absolute Basophils 0.06 Sodium Potassium Chloride Carbon Dioxide Anion Gap BUN Creatinine Estimated GFR/1.73 m2 Glucose Calcium Total Bilirubin AST ALT Alkaline Phosphatase Total Protein Albumin Fluid Hematocrit Patient ABO/Rh Antibody Screen Crossmatch
[2021-06-24] MEDS: Pantoprazole 40 MG TABCR PO (10:57)
[2021-06-24] MEDS: Bacitracin 1 PACKET TP ×2 (10:58→20:29)
[2021-06-24] MEDS: Polyethylene Glycol 3350 17 GM PACKET PO (13:36)
[2021-06-24] MEDS: oxyCODONE 5 MG TAB PO ×2 (13:36→20:32)
--- NOTE | 2021-06-24 14:57 | PT.INTREAT ---
Date of service: 06/24/21 Time of Service: 14:48 PT Notes Visit Reasons: Blunt Chest Trama,Rib FX/Pulm Contusion/Hemopneumo Inpatient Physical Therapy Treatment Note [facility] Date: 06/24/2021 PRECAUTIONS: WBAT L UE, Activity as tolerated SUBJECTIVE: Chauncey is pleasant and agreeable to participating in PT. He reports that he is having more pain today compared to yesterday. He states that he is not ready to begin bed mobility training due to the pain today. OBJECTIVE: PAIN: Patient c/o 8-9/10 pain in L rib area with movement. BED MOBILITY/TRANSFERS Sit-stand: I Stand-sit: I Bed-Chair: I Chair-bed: I GAIT Assistive Device: No AD Weight bearing: WBAT L UE Assist: SBA Distance: 50' x2 Deviation: Pain ASSESSMENT: Patient tolerated session with complaint of 8-9/10 pain in L rib area with all movement. He demonstrates independence with transfers at this time. Patient would benefit from bed mobility training as well as continued gait training. PLAN: Continue with gait training and add bed mobility training for increased independence. TREATMENT CODE/TIME: 18 minutes; [id number] (14:48)
[2021-06-24] MEDS: Magnesium Citrate 300 ML BTL PO (15:00)
[2021-06-24] MEDS: Gabapentin 300 MG CAP PO (20:31)
[2021-06-24] MEDS: Protein Nutritional Supplement 16 GM 1 OUNCE PACKET PO (20:31)
[2021-06-24] MEDS: Celecoxib 200 MG CAP PO (20:32)
[2021-06-24] MEDS: Patch Removal 1 EACH TP (20:33)
[2021-06-24] MEDS: Enoxaparin 40 MG/0.4 ML SYR SC (23:50)
[2021-06-25] VITALS (46 sets, daily range): BP systolic 118–159; BP diastolic 63–86; PULSE 64–92; RESP 11–29; TEMP 36.4–37.3; O2SAT 90–96
[2021-06-25] MEDS: oxyCODONE 5 MG TAB PO ×3 (03:48→21:40)
[2021-06-25] MEDS: Acetaminophen 500 MG TAB 1000 MG PO ×4 (03:48→22:20)
[2021-06-25 06:44] LABS: Abs Immature Grans 0.06 10^3/uL (0.0-0.06); Absolute Basophil Count 0.06 10^3/uL (0.0-0.2); Absolute Eosinophil Count 0.28 10^3/uL (0.0-0.7); Absolute Lymphocyte Count 2.08 10^3/uL (1.2-3.4); Absolute Monocyte Count 0.99 10^3/uL (0.1-0.8); Absolute Neutrophil Count 6.81 10^3/uL (1.2-6.7); Basophils % 0.6; Eosinophils % 2.7; HCT 25.8 % (40.0-50.0); HGB 8.4 g/dL (13.5-17.5); Immature Grans % 0.6; Lymphocytes % 20.2; MCH 29.9 pg (27.0-33.0); MCHC 32.6 % (32.0-36.0); MCV 91.8 fL (80-95); MPV 10.1 fL (8.0-11.0); Monocytes % 9.6; Neutrophils % 66.3; Nucleated RBC 0 %; Platelet Count 186 10^3/uL (130-400); RBC 2.81 10^6/uL (4.36-5.78); RDW 13.2 % (11.8-14.1); RDW-SD 43.4 fL; WBC 10.28 10^3/uL (4.4-10.8)
--- NOTE | 2021-06-25 08:30 | DI.RAD_ITS ---
Exam(s) XR PORTABLE CHEST AP EXAM: XR PORTABLE CHEST AP CLINICAL HISTORY: mult rib fx TECHNIQUE: 2D digital imaging was performed of the chest. Two images were obtained. An AP view was obtained. COMPARISON: CR XR PORTABLE CHEST AP from 06/24/2021 FINDINGS: MEDIASTINUM: Normal. HEART: Normal. PULMONARY VASCULATURE: Normal. LUNGS: Opacity in the left lung base is again seen and likely reflects atelectasis. PLEURAL SPACE: There may be a tiny left pneumothorax present. There is a small left pleural effusion . BONE:Within normal limits for the patient's age. Stable left rib fractures and left clavicular fractu re. OTHER FINDINGS:Persistent subcutaneous emphysema along the left chest wall. Stable location of the l eft chest tube. IMPRESSION: Overall stable appearance of the chest with of probable tiny persistent left pneumothorax. DATA REPOSITORY: RADIATION DOSE DELIVERED:
--- NOTE | 2021-06-25 08:48 | DI.VRAD_ITS ---
PROCEDURE INFORMATION: Exam: XR Chest Exam date and time: 06/25/2021 12:00 AM Age: 51 years old Clinical indication: Other: Multi-rib fracture. TECHNIQUE: Imaging protocol: XR of the chest. Views: 1 view. COMPARISON: CR XR PORTABLE CHEST AP 06/24/2021 8:20 AM FINDINGS: Tubes, catheters and devices: Stable left thoracostomy tube. Lungs: Opacity in the left base may represent contusion. Pleural spaces: There may be mild left pleural effusion Heart/Mediastinum: Stable cardiac silhouette Bones/joints: Multiple displaced left rib fractures. Soft tissues: Subcutaneous emphysema along the left hemithorax.. IMPRESSION: Stable appearance of the chest 1. Multiple displaced left rib fractures. 2. Subcutaneous emphysema along the left hemithorax.. 3. Stable left thoracostomy tube. 4. Opacity in the left base may represent contusion. Dictated and Authenticated by: Frederick Garcia MD. Ordering:MIRNA Garcia MD
--- NOTE | 2021-06-25 09:18 | PT.INNT ---
PT Notes Visit Reasons: Blunt Chest Trama,Rib FX/Pulm Contusion/Hemopneumo Pt refused PT x 2 today due to having difficulty with eating breakfast and getting his day started.
--- NOTE | 2021-06-25 09:22 | W.PM.PROGNOT ---
Objective Last Vital Signs Temp 99.1 F 06/25/21 03:59 Pulse 68 06/25/21 03:59 Resp 18 06/25/21 03:59 BP 128/76 06/25/21 03:59 Pulse Ox 94 06/25/21 03:59 Laboratory Results - last 24 hr 06/21/21 06/25/21 17:33 06:25 WBC 10.28 RBC 2.81 L Hgb 8.4 L Hct 25.8 L MCV 91.8 MCH 29.9 MCHC 32.6 RDW 13.2 Plt Count 186 MPV 10.1 Immature Gran % 0.6 Neutrophils % 66.3 Lymphocytes % 20.2 Monocytes % 9.6 Eosinophils % 2.7 Basophils % 0.6 Nucleated RBC % 0 Absolute Neutrophils 6.81 H Absolute Lymphocytes 2.08 Absolute Monocytes 0.99 H Absolute Eosinophils 0.28 Absolute Basophils 0.06 Patient ABO/Rh A Positive Antibody Screen NEGATIVE Crossmatch See Detail
[2021-06-25] MEDS: Pantoprazole 40 MG TABCR PO (09:24)
[2021-06-25] MEDS: Celecoxib 200 MG CAP PO ×2 (09:27→20:05)
[2021-06-25] MEDS: IRON SUCROSE COMPLEX 200 MG in Normal Saline 100 ML 400 MG IVPB (09:28)
[2021-06-25] MEDS: Protein Nutritional Supplement 16 GM 1 OUNCE PACKET PO ×2 (09:31→20:06)
[2021-06-25] MEDS: Lidocaine 5% Patch 1 PATCH TP (09:39)
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
[2021-06-25] MEDS: Bacitracin 1 PACKET TP ×2 (10:07→22:21)
[2021-06-25] MEDS: Polyethylene Glycol 3350 17 GM PACKET PO (10:08)
--- NOTE | 2021-06-25 15:38 | NUR.NOTE ---
Patient continues to visit with his in room with curtain drawn. Patient likes his privacy.Nursing Note:
--- NOTE | 2021-06-25 16:17 | NUR.NOTE ---
RN calls [facility] to check status of transfer. Patient remains in a waiting status. [facility] will call when a bed becomes available.Nursing Note:
--- NOTE | 2021-06-25 16:58 | SUR.INTRAOP ---
Patient looking to get some take out. RN suggest [employer]. goes to order some food from said restaurant. RN changes out blanket on patient's chair and places fresh sheet on back of chair much to patient's delight.
[2021-06-25] MEDS: Patch Removal 1 EACH TP (20:30)
[2021-06-25] MEDS: Enoxaparin 40 MG/0.4 ML SYR SC (22:00)
[2021-06-25] MEDS: Gabapentin 300 MG CAP PO (22:22)
[2021-06-26] VITALS (11 sets, daily range): BP systolic 129–166; BP diastolic 64–85; PULSE 67–79; RESP 13–21; TEMP 36.5–36.7; O2SAT 79–96
--- NOTE | 2021-06-26 00:01 | NUR.NOTE ---
Nursing Note: At 20:30H on 06/25/21, called [facility] transfer section regarding pt's awaiting bed for transfer to [facility]. As per Ms James from patient flow section informed that he probably can be shifted only on 06/26/21 and no time mentioned.
--- NOTE | 2021-06-26 04:07 | NUR.NOTE ---
Nursing Note: 06/26/2021-Patient was administered Tab Oxycodone 5mg PO at 02:00H for pain score -/10 and Tab Tylenol 1000mg PO at 04:00H scheduled dose. Unable to scan and/or hard doc the medication into the MAR of [facility] system. Nursing wood boat builder supervisor Veronica aware, informed to IS staff Higinio and Sb.
[2021-06-26 06:41] LABS: Abs Immature Grans 0.14 10^3/uL (0.0-0.06); Absolute Basophil Count 0.05 10^3/uL (0.0-0.2); Absolute Eosinophil Count 0.36 10^3/uL (0.0-0.7); Absolute Neutrophil Count 5.44 10^3/uL (1.2-6.7); Basophils % 0.6; Eosinophils % 4.1; HCT 24.7 % (40.0-50.0); HGB 8.1 g/dL (13.5-17.5); Immature Grans % 1.6; Lymphocytes % 19.6; MCHC 32.8 % (32.0-36.0); MCV 91.5 fL (80-95); MPV 9.8 fL (8.0-11.0); Monocytes % 11.5; Neutrophils % 62.6; Nucleated RBC 0 %; Platelet Count 196 10^3/uL (130-400); RDW 13.3 % (11.8-14.1); RDW-SD 42.9 fL; WBC 8.69 10^3/uL (4.4-10.8)
--- NOTE | 2021-06-26 08:30 | DI.RAD_ITS ---
Exam(s) XR PORTABLE CHEST AP EXAM: XR PORTABLE CHEST AP CLINICAL HISTORY: left chest tube, ptx TECHNIQUE: 2D digital imaging was performed of the chest. One image was obtained. An AP view was ob tained. COMPARISON: CR,XR XR PORTABLE CHEST AP from 06/25/2021 FINDINGS: MEDIASTINUM: Normal. HEART: Normal. PULMONARY VASCULATURE: Normal. LUNGS: Mild left basilar atelectasis. The right lung remains clear and well expanded. PLEURAL SPACE: No pleural effusion or pneumothorax. BONE:Within normal limits for the patient's age. Multiple stable left rib fractures and stable left c lavicular fracture. OTHER FINDINGS:The left chest tube is stable in position. There is a small residual amount of subcut aneous emphysema. IMPRESSION: No residual pneumothorax is visualized. DATA REPOSITORY: RADIATION DOSE DELIVERED:
[2021-06-26] MEDS: Protein Nutritional Supplement 16 GM 1 OUNCE PACKET PO (08:31)
--- NOTE | 2021-06-26 08:36 | NUR.NOTE ---
Patient undergoes chest x-ray in room. Patient up in chair.Nursing Note:
--- NOTE | 2021-06-26 09:18 | NUR.NOTE ---
Pleurovac removed from suction and taped to pole so that patient could ambulate with physical therapist in [place]. Patient leaves unit with PT.Nursing Note:
--- NOTE | 2021-06-26 09:25 | PT.INTREAT ---
PT Notes Visit Reasons: Blunt Chest Trama,Rib FX/Pulm Contusion/Hemopneumo Inpatient Physical Therapy Treatment Note [facility] Date: 06/26/21 PRECAUTIONS:L multiple rib fractures. SUBJECTIVE: Pt reports that he is doing fairly well today over all. OBJECTIVE: Sit-stand: CGA Stand-sit: CGA GAIT Assistive Device: No device Weight bearing: Full Assist: CGA Distance: From room 222 to PT room and back STAIRS:Pt went up and down the 1st step in the PT room x10 utilizing one rail. ASSESSMENT: Pt tolerated today's session over all well. PLAN: Cont as per PT POC as per margaret. TREATMENT CODE/TIME: 8:55-9:15 (20) TA
--- NOTE | 2021-06-26 09:31 | DI.VRAD_ITS ---
PROCEDURE INFORMATION: Exam: XR Chest Exam date and time: 06/26/2021 7:13 AM Age: 51 years old Clinical indication: Injury or trauma; Fall; Fracture, traumatic; Closed fracture; Multiple ribs; Left TECHNIQUE: Imaging protocol: XR of the chest. Views: 1 view. COMPARISON: CR XR PORTABLE CHEST AP 11/03/2020 06:27 FINDINGS: Scan quality: Exam is technically satisfactory. Lungs: Left-sided thoracotomy tube remains in place at the base. Lungs show some minimal atelectasis at the left base. The right lung is clear. Pleural spaces: Unremarkable. No pleural effusion. No pneumothorax. Heart/Mediastinum: Cardiomediastinal silhouette is normal. Vasculature: Pulmonary vessels are non-engorged. Bones/joints: Again noted are multiple acute left-sided rib fractures. There is a small amount of subcutaneous emphysema in the left chest wall. IMPRESSION: Multiple left-sided rib fractures. Mild left basilar atelectasis. Chest tube in place with no residual pneumothorax visualized. Dictated and Authenticated by: Ho Baez MD. Ordering:POOJA Marte MD
--- NOTE | 2021-06-26 12:32 | NUR.NOTE ---
RN sets up patient with lunch tray. Patient is up in chair eating lunch.Nursing Note:
--- NOTE | 2021-06-26 12:39 | NUR.NOTE ---
Patient has a laughlin appetite.Nursing Note:
--- NOTE | 2021-06-26 12:55 | NUR.NOTE ---
Dr. Hunter orders type and screen for tomorrow for Hgb of 8.1 today.Nursing Note:
--- NOTE | 2021-06-26 13:58 | NUR.NOTE ---
RN changes out batteries in fan.Nursing Note:
--- NOTE | 2021-06-26 15:09 | NUR.NOTE ---
Report given to [facility] RN on . Nettie arrives and transports patient. All paperwork is given to Nettie.Nursing Note:
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
== END 2021-06-26 15:25 | disposition short-term general hospital (02) | DRG 183 ==
LOC: ER 19:37 → ICU 22:35
PROVIDERS: Student in an Organized Health Care Education/Training Program; Admitting Provider Surgery; Emergency Provider Emergency Medicine; PCP Nurse Practitioner Adult Health; Visit Provider Surgery
DX: S22.42XA Multiple fractures of ribs, left side, initial encounter for closed fracture (principal); S27.2XXA Traumatic hemopneumothorax, initial encounter; S22.038A Other fracture of third thoracic vertebra, initial encounter for closed fracture; S27.321A Contusion of lung, unilateral, initial encounter; N17.9 Acute kidney failure, unspecified; D62 Acute posthemorrhagic anemia; V17.0XXA Pedal cycle driver injured in collision with fixed or stationary object in nontraffic accident, initial encounter; Y93.55 Activity, bike riding; Y92.838 Other recreation area as the place of occurrence of the external cause; I10 Essential (primary) hypertension; E78.00 Pure hypercholesterolemia, unspecified; M10.9 Gout, unspecified; Z20.822 Contact with and (suspected) exposure to COVID-19; S30.1XXA Contusion of abdominal wall, initial encounter; E87.6 Hypokalemia; F17.210 Nicotine dependence, cigarettes, uncomplicated; E86.0 Dehydration; S80.11XA Contusion of right lower leg, initial encounter
CPT/HCPCS: 32551; 36415; 36430; 71045; 74177; 80053; 85013; 85027; 86850; 86900; 86901; 86920; 87635; 90471; 96361; 96374; 96375; 96376; 97162; 97530; 99291; J1650; 70450; 71260; 72125; 73080; 83735; 84484; 85025; 85610; 85730; 93005; 93010; J1756; J1885; J2060; J2405; J3010; J3490; P9016

== ENCOUNTER 2021-07-04 09:58 | Outpatient (REF) | payer OTHER, SELFPAY ==
[2021-07-04 12:40] LABS: Absolute Lymphocyte Count 1.27 10^3/uL (1.2-3.4); Basophils % 0.4; Eosinophils % 1.8; HCT 24.9 % (40.0-50.0); HGB 7.7 g/dL (13.5-17.5); Immature Grans % 2.2; Lymphocytes % 9.3; MCH 29.7 pg (27.0-33.0); MCHC 30.9 % (32.0-36.0); MCV 96.1 fL (80-95); MPV 9.7 fL (8.0-11.0); Monocytes % 8.1; Neutrophils % 78.2; Nucleated RBC 0 %; Platelet Count 517 10^3/uL (130-400); RBC 2.59 10^6/uL (4.36-5.78); RDW 14.4 % (11.8-14.1); RDW-SD 49.4 fL; WBC 13.65 10^3/uL (4.4-10.8)
[2021-07-04 12:41] LABS: Absolute Basophil Count 0.05 10^3/uL (0.0-0.2); Absolute Eosinophil Count 0.25 10^3/uL (0.0-0.7); Absolute Monocyte Count 1.11 10^3/uL (0.1-0.8); Absolute Neutrophil Count 10.67 10^3/uL (1.2-6.7)
[2021-07-04 14:24] LABS: ALT 28 U/L (16-63); AST 26 U/L (15-37); Albumin 2.8 g/dL (3.4-5.0); Alkaline Phosphatase 139 U/L (46-116); Anion Gap 10.8 mmol/L (3-11); BUN 16 mg/dL (7-18); Bilirubin, Total 0.7 mg/dL (0.2-1.0); CO2 25.2 mmol/L (21.0-32.0); CREATININE 1.1 mg/dL (0.70-1.30); Calcium 8.3 mg/dL (8.5-10.1); Chloride 105 mmol/L (98-107); Glucose 143 mg/dL (74-106); Potassium 4.2 mmol/L (3.5-5.1); Sodium 141 mmol/L (136-145); Total Protein 6.2 g/dL (6.4-8.2)
== END 2021-07-04 09:59 | disposition home or self-care (01) ==
LOC: LBN 09:58
PROVIDERS: PCP Nurse Practitioner Adult Health; Visit Provider Nurse Practitioner Adult Health
DX: R78.81 Bacteremia (principal); A49.02 Methicillin resistant Staphylococcus aureus infection, unspecified site; Z79.2 Long term (current) use of antibiotics
CPT/HCPCS: 80053; 85025

== ENCOUNTER 2021-07-11 15:26 | Outpatient (REF) | payer OTHER, SELFPAY ==
[2021-07-11 16:47] LABS: Abs Immature Grans 0.05 10^3/uL (0.0-0.06); Absolute Basophil Count 0.07 10^3/uL (0.0-0.2); Absolute Eosinophil Count 0.21 10^3/uL (0.0-0.7); Absolute Lymphocyte Count 1.58 10^3/uL (1.2-3.4); Absolute Monocyte Count 0.88 10^3/uL (0.1-0.8); Absolute Neutrophil Count 6.27 10^3/uL (1.2-6.7); Basophils % 0.8; Eosinophils % 2.3; HCT 27.9 % (40.0-50.0); HGB 8.8 g/dL (13.5-17.5); Immature Grans % 0.6; Lymphocytes % 17.4; MCH 29.6 pg (27.0-33.0); MCHC 31.5 % (32.0-36.0); MCV 93.9 fL (80-95); MPV 9.5 fL (8.0-11.0); Monocytes % 9.7; Neutrophils % 69.2; Nucleated RBC 0 %; Platelet Count 500 10^3/uL (130-400); RBC 2.97 10^6/uL (4.36-5.78); RDW 14.4 % (11.8-14.1); RDW-SD 48.6 fL; WBC 9.06 10^3/uL (4.4-10.8)
[2021-07-11 17:00] LABS: ALT 17 U/L (16-63); AST 17 U/L (15-37); Alkaline Phosphatase 162 U/L (46-116); Anion Gap 8.9 mmol/L (3-11); BUN 22 mg/dL (7-18); Bilirubin, Total 0.5 mg/dL (0.2-1.0); CO2 28.1 mmol/L (21.0-32.0); Calcium 8.5 mg/dL (8.5-10.1); Chloride 106 mmol/L (98-107); Glucose 108 mg/dL (74-106); Potassium 4.3 mmol/L (3.5-5.1); Sodium 143 mmol/L (136-145); Total Protein 6.8 g/dL (6.4-8.2)
== END 2021-07-11 15:27 | disposition home or self-care (01) ==
LOC: LBN 15:26
PROVIDERS: PCP Nurse Practitioner Adult Health; Visit Provider Nurse Practitioner Adult Health
DX: R78.81 Bacteremia (principal); Z79.2 Long term (current) use of antibiotics
CPT/HCPCS: 80053; 85025

== ENCOUNTER 2023-02-15 14:12 | Outpatient (CLI) | payer OTHER, SELFPAY ==
--- NOTE | 2023-02-15 14:00 | RT.EKG_ITS ---
APPROVED REPORT Exam: Resting ECG Reason for Exam: sob Patient Location: O HR:56 bpm ECG Measurements Heart Rate 56 AXIS DC 177 P -22 QRSd 95 QRS 8 QT 433 T 115 QTc 418 Conclusion Sinus rhythm...normal P axis, V-rate 50- 99 LVH with secondary repolarization abnormality...multi-LVH criteria, abnrm ST-T
== END 2023-02-15 14:13 | disposition home or self-care (01) ==
LOC: DI.KIM 14:13
PROVIDERS: PCP Nurse Practitioner Adult Health; Visit Provider Nurse Practitioner Family
DX: R06.02 Shortness of breath (principal)
CPT/HCPCS: 93010

== ENCOUNTER 2023-02-16 00:30 | Outpatient (CLI) | payer OTHER, SELFPAY ==
--- NOTE | 2023-02-16 08:10 | DI.RAD_ITS ---
Exam(s) XR CHEST 2V PA LATERAL EXAM: XR CHEST 2V PA LATERAL CLINICAL HISTORY: SOB, H//O RIB FX,? CARDIOPULMONARY ABNL,R06.02,Z87.81. TECHNIQUE: 2D digital imaging was performed. COMPARISON: Prior x-ray 06/26/2021 FINDINGS: 2 views: There are now plates across the previously present fractures in the left 6, 7th, 8th, and 9th ribs. Above this level are healed the ribs also noted. No acute fractures evident. Heart size upper normal. Mediastinum not widened. Right lung remains clear. Some pleural scarring on the left side is noted which is most probably rel ated to the prior injury and presence of a large caliber chest tube which was evident on the prior st udy of 06/26/2021. There is no pneumothorax evident. IMPRESSION: No acute pulmonary findings.Left ribs and pleural findings as above. DATA REPOSITORY: RADIATION DOSE DELIVERED:
== END 2023-02-16 00:50 ==
PROVIDERS: PCP Nurse Practitioner Adult Health; Visit Provider Nurse Practitioner Family
DX: R06.02 Shortness of breath (principal); Z87.81 Personal history of (healed) traumatic fracture
CPT/HCPCS: 71046

== ENCOUNTER 2023-02-16 12:15 | Outpatient (CLI) | payer OTHER, SELFPAY ==
[2023-02-16 08:18] LABS: Abs Immature Grans 0.01 10^3/uL (0.0-0.06); Absolute Basophil Count 0.08 10^3/uL (0.0-0.2); Absolute Eosinophil Count 0.21 10^3/uL (0.0-0.7); Absolute Lymphocyte Count 1.62 10^3/uL (1.2-3.4); Absolute Monocyte Count 0.52 10^3/uL (0.1-0.8); Absolute Neutrophil Count 3.84 10^3/uL (1.2-6.7); Basophils % 1.3; Eosinophils % 3.3; HCT 43.4 % (40.0-50.0); Immature Grans % 0.2; Lymphocytes % 25.8; MCH 30.2 pg (27.0-33.0); MCHC 34.6 % (32.0-36.0); MCV 87 fL (80-95); MPV 11.3 fL (8.0-11.0); Monocytes % 8.3; Neutrophils % 61.1; RBC 4.97 10^6/uL (4.36-5.78); RDW 12.6 % (11.8-14.1); RDW-SD 40.1 fL; WBC 6.28 10^3/uL (4.4-10.8)
[2023-02-16 08:32] LABS: Platelet Count 81 10^3/uL (130-400)
[2023-02-16 09:43] LABS: ALT 22 U/L (16-63); AST 17 U/L (15-37); Albumin 4.1 g/dL (3.4-5.0); Alkaline Phosphatase 86 U/L (46-116); Anion Gap 5.3 mmol/L (3-11); BUN 19 mg/dL (7-18); Bilirubin, Total 0.7 mg/dL (0.2-1.0); CO2 30.7 mmol/L (21.0-32.0); Calcium 8.9 mg/dL (8.5-10.1); Calculated LDL 147 mg/dL (<100); Chloride 103 mmol/L (98-107); Cholesterol 234 mg/dL (<200); Glucose 110 mg/dL (74-106); HDL Cholesterol 51 mg/dL (40-60); Potassium 3.8 mmol/L (3.5-5.1); Sodium 139 mmol/L (136-145); TSH (W/Ref FT4) 1.07 uIU/mL (0.36-3.74); Total Protein 7.8 g/dL (6.4-8.2); Triglyceride 180 mg/dL (<150)
== END 2023-02-16 12:16 | disposition home or self-care (01) ==
LOC: LBO 12:16
PROVIDERS: PCP Nurse Practitioner Adult Health; Visit Provider Nurse Practitioner Family
DX: Z86.2 Personal history of diseases of the blood and blood-forming organs and certain disorders involving the immune mechanism (principal); E78.5 Hyperlipidemia, unspecified; I10 Essential (primary) hypertension; Z13.1 Encounter for screening for diabetes mellitus; R06.02 Shortness of breath
CPT/HCPCS: 36415; 80053; 80061; 84443; 85025

== ENCOUNTER 2023-02-27 03:45 | Outpatient (CLI) | payer OTHER, SELFPAY ==
[2023-02-27] MEDS: Inhaler, Assist Device 1 EACH MC (09:25)
[2023-02-27] MEDS: Albuterol HFA 18 GM 200 PUFF INH IH (09:25)
--- NOTE | 2023-02-27 12:53 | W.PFT ---
Date of service: 02/27/23 Time of Service: 08:10 Pulmonary Function Test Result Indications: Dyspnea on exertion Interpretation Spirometry: There is no airflow limitation. There is no significant bronchodilator response. There is restrictive appearing spirometry. Lung Volumes: There is air trapping Diffusion Capacity: Normal diffusion Airway Pressure: Normal airways resistance Impression There is air trapping, otherwise normal pulmonary function. Clinical Correlation therefore is recommended.
== END 2023-02-27 03:46 | disposition home or self-care (01) ==
PROVIDERS: PCP Nurse Practitioner Adult Health; Visit Provider Nurse Practitioner Family
DX: R06.02 Shortness of breath (principal); S30.1XXD Contusion of abdominal wall, subsequent encounter; S42.022D Displaced fracture of shaft of left clavicle, subsequent encounter for fracture with routine healing; X58.XXXD Exposure to other specified factors, subsequent encounter
CPT/HCPCS: 94060; 94726; 94729

== ENCOUNTER 2023-03-09 13:59 | Outpatient (CLI) | payer OTHER, SELFPAY ==
--- NOTE | 2023-03-09 13:45 | RT.EKG_ITS ---
APPROVED REPORT Exam: Resting ECG Reason for Exam: LVH Patient Location: O HR:66 bpm ECG Measurements Heart Rate 66 AXIS CO 175 P 15 QRSd 94 QRS 3 QT 434 T 75 QTc 455 Conclusion Sinus rhythm...normal P axis, V-rate 50- 99 Left ventricular hypertrophy...multiple voltage criteria Borderline T abnormalities, lateral leads...T flat/neg, I aVL V5 V6
== END 2023-03-09 14:00 | disposition home or self-care (01) ==
LOC: DI.KIM 14:00
PROVIDERS: PCP Nurse Practitioner Adult Health; Visit Provider Nurse Practitioner Family
DX: I51.7 Cardiomegaly (principal)
CPT/HCPCS: 93010

== ENCOUNTER 2023-07-23 14:29 | Outpatient (CLI) | payer OTHER, SELFPAY ==
[2023-07-23 14:34] LABS: Abs Immature Grans 0.02 10^3/uL (0.0-0.06); Absolute Basophil Count 0.05 10^3/uL (0.0-0.2); Absolute Eosinophil Count 0.24 10^3/uL (0.0-0.7); Absolute Lymphocyte Count 1.92 10^3/uL (1.2-3.4); Absolute Monocyte Count 0.53 10^3/uL (0.1-0.8); Absolute Neutrophil Count 4.04 10^3/uL (1.2-6.7); Basophils % 0.7; Eosinophils % 3.5; HGB 14.1 g/dL (13.5-17.5); Immature Grans % 0.3; Lymphocytes % 28.2; MCH 30.7 pg (27.0-33.0); MCHC 34.4 % (32.0-36.0); MCV 89 fL (80-95); MPV 14.5 fL (8.0-11.0); Monocytes % 7.8; Neutrophils % 59.5; RDW 12.8 % (11.8-14.1); RDW-SD 41.9 fL
[2023-07-23 15:31] LABS: Diff Comment Diff Reviewed; Platelet Count 20 10^3/uL (130-400); RBC Morphology Normal
== END 2023-07-23 14:30 | disposition home or self-care (01) ==
LOC: LBO 14:37
PROVIDERS: PCP Nurse Practitioner Adult Health; Visit Provider Nurse Practitioner Family
DX: D69.6 Thrombocytopenia, unspecified (principal)
CPT/HCPCS: 36415; 85025

== ENCOUNTER 2023-08-29 15:21 | Outpatient (CLI) | payer OTHER, MEDICAID, SELFPAY ==
[2023-08-29 16:06] LABS: Abs Immature Grans 0.01 10^3/uL (0.0-0.06); Absolute Basophil Count 0.05 10^3/uL (0.0-0.2); Absolute Lymphocyte Count 1.39 10^3/uL (1.2-3.4); Absolute Neutrophil Count 3.33 10^3/uL (1.2-6.7); Basophils % 0.9; Eosinophils % 1.8; HCT 41.5 % (40.0-50.0); HGB 13.8 g/dL (13.5-17.5); Immature Grans % 0.2; Lymphocytes % 24.9; MCH 29.7 pg (27.0-33.0); MCHC 33.3 % (32.0-36.0); MCV 89 fL (80-95); MPV 12.9 fL (8.0-11.0); Monocytes % 12.5; Neutrophils % 59.7; RBC 4.64 10^6/uL (4.36-5.78); RDW 12.8 % (11.8-14.1); RDW-SD 42.3 fL; WBC 5.58 10^3/uL (4.4-10.8)
[2023-08-29 16:09] LABS: LDH 100 U/L (85-227)
[2023-08-29 16:10] LABS: ALT 21 U/L (16-63); AST 20 U/L (15-37); Alkaline Phosphatase 88 U/L (46-116); BUN 24 mg/dL (7-18); Bilirubin, Total 0.5 mg/dL (0.2-1.0); CREATININE 1.1 mg/dL (0.70-1.30); Calcium 8.9 mg/dL (8.5-10.1); Chloride 104 mmol/L (98-107); Estimated GFR 79.77 (mL/min/1.73m2); Glucose 108 mg/dL (74-106); Potassium 3.2 mmol/L (3.5-5.1); Sodium 142 mmol/L (136-145); Total Protein 7.8 g/dL (6.4-8.2)
[2023-08-29 16:13] LABS: Platelet Count 26 10^3/uL (130-400)
[2023-08-29 16:20] LABS: Diff Comment PLT Morph Reviewed; RBC Morphology Normal
[2023-08-31 08:55] LABS: IgA 304 mg/dL (85-499); IgG 1080 mg/dL (610-1616); IgM 63 mg/dL (35-242); Kappa Free Light Chain 2.16 mg/dL (0.33-1.94); Lambda Free Light Chain 1.38 mg/dL (0.57-2.63)
[2023-08-31 14:21] LABS: Albumin 61.8 % (55.8-66.1); Albumin g/dL 4.6 g/dL (3.6-5.2); Total Protein 7.5 g/dL (6.3-8.2)
== END 2023-08-29 15:22 | disposition home or self-care (01) ==
LOC: LBO 15:22
PROVIDERS: PCP Nurse Practitioner Adult Health; Visit Provider Internal Medicine Hematology & Oncology
DX: D69.6 Thrombocytopenia, unspecified (principal)
CPT/HCPCS: 36415; 80053; 82784; 85027; 86850; 86900; 86901; 83615; 83883; 84165; 85025

== ENCOUNTER 2023-09-07 08:04 | Outpatient (CLI) | payer OTHER, MEDICAID, SELFPAY ==
[2023-09-07 08:05] LABS: Abs Immature Grans 0.02 10^3/uL (0.0-0.06); Absolute Eosinophil Count 0.19 10^3/uL (0.0-0.7); Absolute Monocyte Count 0.36 10^3/uL (0.1-0.8); Absolute Neutrophil Count 3.89 10^3/uL (1.2-6.7); Basophils % 1.7; Eosinophils % 3.1; HCT 44.1 % (40.0-50.0); HGB 14.9 g/dL (13.5-17.5); Immature Grans % 0.3; Lymphocytes % 24.8; MCHC 33.8 % (32.0-36.0); MCV 89 fL (80-95); MPV 11.8 fL (8.0-11.0); Monocytes % 5.9; Neutrophils % 64.2; RBC 4.96 10^6/uL (4.36-5.78); RDW 12.6 % (11.8-14.1); RDW-SD 41.2 fL; WBC 6.06 10^3/uL (4.4-10.8)
[2023-09-07 08:18] LABS: ALT 20 U/L (16-63); AST 16 U/L (15-37); Alkaline Phosphatase 81 U/L (46-116); Anion Gap 5.7 mmol/L (3-11); BUN 22 mg/dL (7-18); Bilirubin, Total 0.5 mg/dL (0.2-1.0); CO2 31.3 mmol/L (21.0-32.0); CREATININE 1.2 mg/dL (0.70-1.30); Calcium 9.2 mg/dL (8.5-10.1); Chloride 103 mmol/L (98-107); Diff Comment Diff Reviewed; Estimated GFR 71.86 (mL/min/1.73m2); Glucose 139 mg/dL (74-106); Platelet Count 77 10^3/uL (130-400); Potassium 4.1 mmol/L (3.5-5.1); RBC Morphology Normal; Sodium 140 mmol/L (136-145); Total Protein 8.1 g/dL (6.4-8.2)
== END 2023-09-07 08:05 | disposition home or self-care (01) ==
LOC: LBO 08:04
PROVIDERS: PCP Nurse Practitioner Adult Health; Visit Provider Internal Medicine Hematology & Oncology
DX: D69.6 Thrombocytopenia, unspecified (principal)
CPT/HCPCS: 36415; 80053; 86850; 86900; 86901; 85025

== ENCOUNTER → 2023-12-05 01:27 | Outpatient (CLI) | payer MEDICAID, SELFPAY ==
--- NOTE | 2023-12-05 | DI.CT_ITS ---
Exam(s) CT CHEST/ABD/PEL W EXAM: CT CHEST/ABD/PEL W CLINICAL HISTORY: THROMBOCYTOPENIA,D69.6,NEW PRESUMED ITP,? LYMPHOMA,?ADENOPATHY,SPLENOMEGALY TECHNIQUE: Imaging Protocol: Axial computed tomography images with coronal and sagittal reformatted images were created and reviewed CONTRAST MATERIAL: Intravenous: Omnipaque 350 contrast volume:100 mL Oral: Yes COMPARISON: CT CT THORACIC LUMBAR SPINE REC from 06/21/[address] CHEST/ABD/PEL W from 06/21/2021 CR XR CHEST 2V PA LATERAL from 02/16/2023 FINDINGS: CHEST: Tracheobronchial tree: Patent where visualized. Pulmonary parenchyma: Dependent atelectatic changes are seen in the lung bases. There is peripheral scarring seen adjacent to old rib fractures in the left lower lobe. No pulmonary nodules are identif ied. No architectural distortion. Visualized thyroid gland: There is a 1.1 cm hypodense nodule in the right lobe of the thyroid gland. (Series 5, image 29). Nonemergent thyroid ultrasound is recommended for further evaluation. Mediastinum and Samira: No dominant adenopathy or fluid collection. The esophagus is unremarkable. Pleura: No effusion or pneumothorax. Heart: Mild cardiomegaly. Mild coronary artery calcification is present. No pericardial effusion. Pulmonary arteries: No pulmonary emboli are identified. Aorta: The ascending thoracic aorta measures 4.1 x 4.3 cm. (Series 5, image 270). Mild atherosclero tic calcification is noted. No dissection is seen. Lymph nodes: No significant axillary or supraclavicular adenopathy. Soft tissues: Unremarkable. Bones:Within normal limits for the patient's age. There again seen sideplate transfixing healed left rib fractures. No aggressive osseous lesions are identified. ABDOMEN: Liver: Normal density. Stable hepatic cysts. Portal, Superior Mesenteric, and Splenic Veins: Unremarkable. Gallbladder and Biliary Tract: No radiodense calculus or dilation. Pancreas: Normal density, no abnormal calcifications or inflammatory process. Spleen: Normal. Adrenals: No masses seen. Kidneys: Normal size, contour and axis. No radiodense stones or obstructive uropathy. No masses seen. Abdominal Aorta: Abdominal portion non-dilated. There is mild atherosclerotic calcification of the ab dominal aorta. Bowel: No obstruction or bowel wall thickening. There is stool seen slightly distending the rectum wh ich may reflect fecal impaction. There is a moderate amount of stool seen throughout the colon sugges ting constipation. There is a normal appendix present. Peritoneal Cavity: No ascites, collection or mesenteric inflammatory response. No free air. Lymph Nodes: Within normal limits. Bones: Within normal limits for the patient's age. Soft Tissues: Unremarkable. PELVIS: Bladder: Symmetric distention, no gross wall thickening. Reproductive Organs: There is an enlarged prostate gland. Lymph Nodes: Within normal limits. Bones: Within normal limits. IMPRESSION: 1. No evidence of a thoracic mass or thoracic adenopathy. 2. 1.1 cm right thyroid nodule. Nonemergent thyroid ultrasound is recommended for further evaluation. 3. No evidence of an abdominal mass or adenopathy. 4. Constipation. 5. Enlarged prostate gland. 6. Ascending thoracic aorta measures 4.1 x 4.3 cm. Atherosclerotic calcification is present. No disse ction. RADIATION DOSE DELIVERED: Total DLP DATA REPOSITORY: All CT scans at this facility are submitted to the National Radiology Data Registry (NRDR) Dose Index Registry (DIR) with the [employer] ([employer]). RADIATION OPTIMIZATION: All CT scans at this facility use at least one of these dose optimization te chniques: automated exposure control; mA and/or kV adjustment per patient size (includes targeted exa ms where dose is matched to clinical indication); or iterative reconstruction.
[2023-12-05 07:15] LABS: Abs Immature Grans 0.01 10^3/uL (0.0-0.06); Absolute Basophil Count 0.05 10^3/uL (0.0-0.2); Absolute Eosinophil Count 0.19 10^3/uL (0.0-0.7); Absolute Monocyte Count 0.33 10^3/uL (0.1-0.8); Absolute Neutrophil Count 4.37 10^3/uL (1.2-6.7); Basophils % 0.8; HCT 44.9 % (40.0-50.0); Immature Grans % 0.2; MCH 29.1 pg (27.0-33.0); MCHC 33.4 % (32.0-36.0); MCV 87 fL (80-95); MPV 11.4 fL (8.0-11.0); Monocytes % 5.2; Neutrophils % 68.8; RBC 5.16 10^6/uL (4.36-5.78); RDW 12.9 % (11.8-14.1); RDW-SD 40.7 fL; WBC 6.35 10^3/uL (4.4-10.8)
[2023-12-05] MEDS: Barium Sulfate 2% W/V-Berry Smoothie 450 ML BTL PO ×2 (07:24→07:25)
[2023-12-05 07:30] LABS: Diff Comment Diff Reviewed; Platelet Count 92 10^3/uL (130-400); RBC Morphology Normal
[2023-12-05 07:41] LABS: ALT 19 U/L (16-63); AST 16 U/L (15-37); Alkaline Phosphatase 88 U/L (46-116); BUN 25 mg/dL (7-18); Bilirubin, Total 0.7 mg/dL (0.2-1.0); CREATININE 1.1 mg/dL (0.70-1.30); Calcium 8.9 mg/dL (8.5-10.1); Chloride 105 mmol/L (98-107); Estimated GFR 79.77 (mL/min/1.73m2); Glucose 116 mg/dL (74-106); Potassium 3.9 mmol/L (3.5-5.1); Sodium 144 mmol/L (136-145)
[2023-12-05] MEDS: Omnipaque 350 MG/ML 100 ML BTL IJ (09:01)
[2023-12-05] MEDS: Normal Saline - Diluent 50 ML VIAL IJ (09:01)
== END ==
PROVIDERS: PCP Nurse Practitioner Adult Health; Visit Provider Internal Medicine Hematology & Oncology
DX: E04.1 Nontoxic single thyroid nodule (principal); D69.6 Thrombocytopenia, unspecified
CPT/HCPCS: 74177; 80053; 86850; 86900; 86901; 71260; 85025; J3490